=== PATIENT | female | born 1990 | race Hispanic/Latino ===

== ENCOUNTER 2021-07-01 18:54 | Emergency (ER) | payer OTHER ==
[~2021-07-01] VITALS: Ht 165.1 cm; Wt 130.6 kg
[2021-07-01] MEDS ORDERED: ONDANSETRON 4MG INJ IVP ONE (19:30)
[2021-07-01] MEDS ORDERED: 0.9%NACL 1000ML 1,000 ML IV ONE (19:30)
[2021-07-01] MEDS ORDERED: KETOROLAC 30MG VIAL (30MG/ML) IVP ONE (19:30)
[2021-07-01] MEDS ORDERED: ORPHENADRINE CITRATE 30 MG/ML ML IVP ONE (19:30)
[2021-07-01 19:34] LABS: BASOPHILS % (AUTO) 0.3 % (0.0-5.0); EOSINOPHILS % (AUTO) 2.2 % (0.0-8.0); HEMATOCRIT 35.1 % (36-48); MEAN CORPUSCULAR HEMOGLOBIN 26.3 pg (27.0-33.0); MEAN CORPUSCULAR HGB CONC 31.1 g/dL (32.0-36.0); MEAN CORPUSCULAR VOLUME 84.6 fL (79-99); MONOCYTES % (AUTO) 4.9 % (3.0-13.0); NEUTROPHILS % (AUTO) 67.2 % (40.0-77.0); PLATELET COUNT (AUTO) 342 K/uL (130-400); RED BLOOD CELL COUNT(AUTO) 4.15 MIL/uL (4.00-5.50); RED CELL DISTRIBUTION WIDTH 13.9 % (11.0-15.5); WHITE BLOOD COUNT (AUTO) 11.4 K/uL (4.8-10.8)
[2021-07-01 19:35] LABS: APPEARANCE,URINE Clear (CLEAR); BILIRUBIN,URINE Negative (NEGATIVE); COLOR,URINE Yellow (YELLOW); GLUCOSE, URINE (UA) Negative (NEGATIVE); KETONES,URINE Trace mg/dL (NEGATIVE); LEUKOCYTE ESTERASE ,URINE Trace (NEGATIVE); NITRATE,URINE Negative (NEGATIVE); OCCULT BLOOD,URINE Large (NEGATIVE); PH,URINE 5.5 (5.0-8.0); PROTEIN,URINE Trace mg/dL (NEGATIVE)
[2021-07-01 19:40] LABS: HCG,QUAL RESULT NEGATIVE (NEGATIVE)
[2021-07-01 19:46] LABS: CREATININE 0.8 mg/dL (0.5-1.5); POTASSIUM 3.4 mmol/L (3.5-5.1)
[2021-07-01 19:52] LABS: ALBUMIN 3.4 g/dL (3.5-5.0); BILIRUBIN,TOTAL 0.1 mg/dL (0.2-1.0); TOTAL PROTEIN, SERUM 7.6 g/dL (6.0-8.3)
[2021-07-01 19:52] LABS: RBC,URINE >100 /HPF (0-1)
[2021-07-01 19:54] LABS: BACTERIA,URINE Few /HPF (None Seen); MUCUS,URINE Many LPF (None Seen); WBC,URINE 0-1 /HPF (0-1)
[2021-07-01 21:12] VITALS: BP 125/77
[2021-07-01] MEDS ORDERED: LIDOP TP (21:30)
[2021-07-01] MEDS ORDERED: CYCL-309 PO (21:30)
[2021-07-01] MEDS ORDERED: MELO7.5T12 PO (21:30)
== END 2021-07-01 22:10 | disposition home or self-care (01) ==
LOC: EDH 18:54
DX: M62.830 Muscle spasm of back (principal); R07.89 Other chest pain; Z20.822 Contact with and (suspected) exposure to COVID-19; Z79.1 Long term (current) use of non-steroidal anti-inflammatories (NSAID)
CPT/HCPCS: 36415; 71045; 80053; 81001; 81025; 83690; 84484; 85025; 87635; 87804 ×2; 93005; 96374; 96375; 99285; C9803; J1885; J2360; J2405; J7030

== ENCOUNTER 2023-08-04 16:23 | Emergency (ER) | payer MEDICAID, OTHER ==
[~2023-08-04] VITALS: Ht 165.1 cm; Wt 117.9 kg
[~2023-08-04 16:23] MED LIST: CYCL-309 PO; LIDOP TP; MELO7.5T12 PO
[2023-08-04 16:26] VITALS: BP 151/77; PULSE 92; RESP 16
[2023-08-04] MEDS ORDERED: KETO10TA2 PO (18:33)
== END 2023-08-04 19:02 | disposition home or self-care (01) ==
LOC: EDH 16:23
DX: S93.491A Sprain of other ligament of right ankle, initial encounter (principal); J40 Bronchitis, not specified as acute or chronic; Z79.899 Other long term (current) drug therapy; W18.39XA Other fall on same level, initial encounter; Y93.89 Activity, other specified; Y92.89 Other specified places as the place of occurrence of the external cause; Y99.8 Other external cause status
CPT/HCPCS: 73610